=== PATIENT | female | born 1980 | race American Indian/Alaskan Native ===

== ENCOUNTER 2017-09-24 14:52 | Emergency (ER) | payer SELFPAY ==
[2017-09-24 15:28] LABS: Bilirubin,Urine NEG (Negative); Blood,Urine NEG (Negative); Color,Urine Yellow (Yellow); Nitrite,Urine NEG (Negative); Protein,Urine <15 mg/dL mg/dL (Negative); Urobilinogen,Urine < 2.0 mg/dL (<2.0)
[2017-09-24 16:35] LABS: Hematocrit 27.1 % (30.3-42.9); Hemoglobin 8.4 gm/dl (10.1-14.3); Mean Corpuscular HGB Conc 31 % (30-34); Mean Corpuscular Hemoglobin 20 pg (28-32); Mean Corpuscular Volume 64 fl (79-97); Red Blood Count 4.26 M/mm3 (3.65-5.03)
[2017-09-24 16:36] LABS: Basophils # (Auto) 0.1 K/mm3 (0.0-0.1); Basophils % (Auto) 2.1 % (0.0-1.8); Eosinophils # (Auto) 0.1 K/mm3 (0.0-0.4); Eosinophils % (Auto) 2.3 % (0.0-4.3); Lymphocytes % (Auto) 46.4 % (13.4-35.0); Monocytes # (Auto) 0.4 K/mm3 (0.0-0.8); Monocytes % (Auto) 9.1 % (0.0-7.3); Platelet Count 223 K/mm3 (140-440); Red Cell Distribution Width 19.4 % (13.2-15.2)
[2017-09-24 16:56] LABS: Alanine Aminotransferase 10 units/L (7-56); BUN/Creatinine Ratio 23; Blood Urea Nitrogen 14 mg/dL (7-17); Calcium 8.3 mg/dL (8.4-10.2); Hemolysis Index 11
--- NOTE | 2017-09-25 00:11 | Emergency Department Report ---
ED Female HPI - General Chief complaint: Abdominal Pain Stated complaint: ABD.,BACK PAIN CRAMPING, BLEEDING Time Seen by Provider: 09/24/17 23:31 Source: patient Mode of arrival: Ambulatory Limitations: No Limitations - History of Present Illness Initial comments: This is a 37 y.o. female presents with left pelvic pain and bleeding for 1 week. LMP 09/11/2017. The bleeding is every other day and cramping is 10/10 on pain scale that is intermittent. Sometimes the bleeding is scant and at times there are large clots. She have a history of tubiligation and HTN. She is currently not taking propanolol. She doesn't have a history of irregular menses. Reports menses regular and last for 5 days. MD Complaint: vaginal bleeding, pelvic pain -: week(s) (1) Location: LLQ Radiation: non-radiating Severity: moderate Severity scale (0 -10): 7 Quality: cramping Consistency: intermittent Improves with: medication Worsens with: none Are you Now?: No Last Menstrual Period: 09/11/17 EDC: 06/18/18 Associated Symptoms: vaginal bleeding, abdominal pain. denies: vaginal discharge, nausea/vomiting, fever/chills, headaches, loss of appetite, dysuria, hematuria, rash, seizure, shortness of breath, syncope, weakness - Related Data Sexually active: Yes Previous Rx's Medication Instructions Recorded Last Taken Type amLODIPine [Norvasc] 2.5 mg PO DAILY 30 Days tab 06/21/13 Unknown Rx Ciprofloxacin HCl [Cipro] 500 mg PO Q12H #20 tab 03/02/14 Unknown Rx HYDROcodone/APAP 5-325 [[place] 1 each PO Q6HR PRN #12 tablet 03/02/14 Unknown Rx 5/325] Promethazine Dm [Phenergan DM 5 ml PO Q6H PRN #120 ml 03/02/14 Unknown Rx 6.25-15 mg/5 ml] Lisinopril/Hydrochlorothiazide 1 each PO QDAY #30 tablet 02/01/15 Unknown Rx [Zestoretic 20-12.5 mg] Butalb/Acetaminophen/Caffeine 1 each PO Q6H PRN #20 capsule 10/24/15 Unknown Rx [Fioricet 50-300-40 mg CAP] Propranolol [Inderal] 10 mg PO BID #60 tablet 10/24/15 Unknown Rx Sulfamethoxazole/Trimethoprim 1 each PO BID #14 tablet 11/04/15 Unknown Rx [Bactrim DS TAB] ALBUTEROL Inhaler [ProAir HFA 2 puff IH QID PRN #1 inhalation 07/07/16 Unknown Rx Inhaler] Azithromycin [Zithromax Z-THANH] 250 mg PO DAILY #6 tab 07/07/16 Unknown Rx guaiFENesin/CODEINE [Robitussin AC] 5 ml PO Q6H PRN #100 ml 07/07/16 Unknown Rx Ibuprofen 800 mg PO Q6H PRN #20 tablet 09/25/17 Unknown Rx medroxyPROGESTERone ACETATE 10 mg PO DAILY #10 tablet 09/25/17 Unknown Rx [Provera] Allergies Allergy/AdvReac Type Severity Reaction Status Date / Time cefazolin sodium [From [facility] [place]] Allergy Itching Verified 06/21/13 01:38 ED Review of Systems ROS: Stated complaint: ABD.,BACK PAIN CRAMPING, BLEEDING Other details as noted in HPI Constitutional: denies: chills, fever Respiratory: denies: cough, shortness of breath, wheezing Cardiovascular: denies: chest pain, palpitations Gastrointestinal: abdominal pain. denies: nausea, diarrhea Genitourinary: abnormal menses. denies: urgency, dysuria, discharge Neurological: denies: headache, weakness, paresthesias ED Past Medical Hx - Past Medical History Hx Hypertension: Yes (noncompliant with propranolol) Additional medical history: Vaginal delivery 2004,2002, 2000 and 1998 - Surgical History Additional Surgical History: Left hand and hip surgery,tubiligation - Social History Smoking Status: Current Some Day Smoker - Medications Home Medications: Home Medications Medication Instructions Recorded Confirmed Last Taken Type amLODIPine [Norvasc] 2.5 mg PO DAILY 30 Days tab 06/21/13 03/02/14 Unknown Rx Ciprofloxacin HCl [Cipro] 500 mg PO Q12H #20 tab 03/02/14 Unknown Rx HYDROcodone/APAP 5-325 [[place] 1 each PO Q6HR PRN #12 tablet 03/02/14 Unknown Rx 5/325] Promethazine Dm [Phenergan DM 5 ml PO Q6H PRN #120 ml 03/02/14 Unknown Rx 6.25-15 mg/5 ml] Lisinopril/Hydrochlorothiazide 1 each PO QDAY #30 tablet 02/01/15 Unknown Rx [Zestoretic 20-12.5 mg] Butalb/Acetaminophen/Caffeine 1 each PO Q6H PRN #20 capsule 10/24/15 Unknown Rx [Fioricet 50-300-40 mg CAP] Propranolol [Inderal] 10 mg PO BID #60 tablet 10/24/15 Unknown Rx Sulfamethoxazole/Trimethoprim 1 each PO BID #14 tablet 11/04/15 Unknown Rx [Bactrim DS TAB] ALBUTEROL Inhaler [ProAir HFA 2 puff IH QID PRN #1 inhalation 07/07/16 Unknown Rx Inhaler] Azithromycin [Zithromax Z-THANH] 250 mg PO DAILY #6 tab 07/07/16 Unknown Rx guaiFENesin/CODEINE [Robitussin AC] 5 ml PO Q6H PRN #100 ml 07/07/16 Unknown Rx Ibuprofen 800 mg PO Q6H PRN #20 tablet 09/25/17 Unknown Rx medroxyPROGESTERone ACETATE 10 mg PO DAILY #10 tablet 09/25/17 Unknown Rx [Provera] ED Physical Exam - General Limitations: No Limitations General appearance: alert, in no apparent distress - Respiratory Respiratory exam: Present: normal lung sounds bilaterally. Absent: respiratory distress - Cardiovascular Cardiovascular Exam: Present: regular rate, normal rhythm. Absent: systolic murmur, diastolic murmur, rubs, gallop - GI/Abdominal GI/Abdominal exam: Present: soft, tenderness (LLQ), normal bowel sounds. Absent : distended, guarding, rebound, rigid - Back Exam Back exam: Present: normal inspection - Neurological Exam Neurological exam: Present: alert, oriented X3 - Skin Skin exam: Present: warm, dry, intact, normal color. Absent: rash ED Course Vital Signs 09/24/17 14:59 Temperature 98.1 F Pulse Rate 70 Respiratory 16 Rate Blood Pressure 145/97 O2 Sat by Pulse 100 Oximetry ED Medical Decision Making - Lab Data Result diagrams: 09/24/17 16:16 09/24/17 16:16 - Radiology Data Radiology results: report reviewed IMPRESSION: Three discrete fibroids in the body of the uterus. Small functional cysts in both ovaries the larger in the left ovary measures 2.4 cm in diameter. No evidence of ovarian torsion. Small amount of free fluid in cul-de-sac. - Medical Decision Making This is a 37 y.o. female presents with vaginal bleeding and left abdominal pain for 1 week. LMP 09/11/2017. Patient was examined by me. Obtained CBC, CMP, & UA. WBC 4.3 all other labs WNL. Pelvis and transvaginal US obtained and three discrete fibroids in the body of the uterus. Small functional cysts in both ovaries the larger in the left ovary measures 2.4 cm in diameter. No evidence of ovarian torsion. Small amount of free fluid in cul-de-sac. Discussed results with patient. Discharged home in stable condition. Start provera 10 mg po daily for 10 days. Follow up with [facility] for management of metrorrhagia and fibroids. Critical care attestation.: If time is entered above; I have spent that time in minutes in the direct care of this critically ill patient, excluding procedure time. ED Disposition Clinical Impression: Abnormal uterine bleeding unrelated to menstrual cycle Fibroids Qualifiers: Uterine leiomyoma location: unspecified location Qualified Code(s): D25.9 - Leiomyoma of uterus, unspecified Ovarian cyst Qualifiers: Laterality: bilateral Qualified Code(s): N83.201 - Unspecified ovarian cyst, right side; N83.202 - Unspecified ovarian cyst, left side; N83.202 - Unspecified ovarian cyst, left side Disposition: - TO HOME OR SELFCARE Is pt being admited?: No Does the pt Need Aspirin: No Condition: Stable Instructions: Abdominal Pain (ED), Uterine Fibroids (ED) Additional Instructions: Take provera daily until bleeding stop. Follow up with [facility] for fibroids and ovarian cyst. Prescriptions: Ibuprofen 800 mg PO Q6H PRN #20 tablet PRN Reason: Pain medroxyPROGESTERone ACETATE [Provera] 10 mg PO DAILY #10 tablet Referrals: HUEY PHIPPS MD [Staff Physician] - 3-5 Days [facility] [Outside] - 3-5 Days [facility] [Outside] - 3-5 Days Time of Disposition: 04:16 Print Language: DUTCH
[2017-09-25 01:07] LABS: HCG Qualitative,Urine Negative (Negative)
[2017-09-25 01:08] LABS: Mucus,Urine FEW /HPF
--- NOTE | 2017-09-25 03:02 | Ultrasound Report ---
FINAL REPORT EXAM: US TRANSVAGINAL HISTORY: vaginal bleeding TECHNIQUE: Transvaginal imaging was obtained the pelvis along with Doppler interrogation of the adnexa. FINDINGS: The uterus is anteverted measuring 9.9 cm x 5 cm x 6.2 cm. There are 3 separate hypoechoic fibroids in the body of the uterus the largest measuring 2.6 cm x 2.5 cm x 2.4 cm anteriorly. The abdomen thickness is 15 millimeters. The endometrium is homogeneous. There trace free fluid in the pelvis. The right ovary measures 3.4 cm x 2 cm x 3.5 cm. Within the right ovary are benign-appearing follicles. The largest measures 1.5 cm in diameter. Blood flow is normal to the right ovary. The left ovary measures 4 cm x 3.2 cm by 3.6 cm. There are benign-appearing follicles in left ovary with a dominant cyst measuring 2.4 cm in diameter. Blood flow is normal to the left ovary. IMPRESSION: Three benign-appearing fibroids in the uterus the largest measuring up to 2.6 cm in diameter. Small functional cysts in both ovaries. No evidence of ovarian torsion. Small amount of free fluid in cul-de-sac.
--- NOTE | 2017-09-25 03:05 | Ultrasound Report ---
FINAL REPORT EXAM: US PELVIC COMPLETE HISTORY: . TECHNIQUE: Transabdominal imaging was obtained of the pelvis along with Doppler interrogation of the adnexa. FINDINGS: The uterus is anteverted measuring 9.9 cm x 5 cm x 6.2 cm. There are 3 discrete hypoechoic fibroids in the body of uterus, the largest anteriorly measuring 2.6 cm x 2.5 cm x 2.4 cm. The endometrium is 15 mm. There is trace free fluid the pelvis. The right ovary measures 3.4 cm x 2 cm x 3.5 cm. Within the right ovary are several benign follicles the largest measuring 1.5 cm in diameter. The blood flow is normal to the right ovary. The left lobe measures 4 cm x 3.2 cm x 3.6 cm. There are benign-appearing follicles left ovary with a dominant cyst measuring 2.4 cm in diameter. The blood flow is normal to left ovary. IMPRESSION: Three discrete fibroids in the body of the uterus. Small functional cysts in both ovaries the larger in the left ovary measures 2.4 cm in diameter. No evidence of ovarian torsion. Small amount of free fluid in cul-de-sac.
[2017-09-25 04:37] VITALS: BP 156/98
== END 2017-09-25 04:35 | disposition home or self-care (01) ==
LOC: ED 14:52
DX: N93.8 Other specified abnormal uterine and vaginal bleeding (principal); D25.9 Leiomyoma of uterus, unspecified; N83.202 Unspecified ovarian cyst, left side; N83.201 Unspecified ovarian cyst, right side; F17.200 Nicotine dependence, unspecified, uncomplicated; I10 Essential (primary) hypertension; Z98.51 Tubal ligation status; Z88.1 Allergy status to other antibiotic agents
CPT/HCPCS: 36415; 76830; 76856; 80053; 81001; 81025; 85025; 99284

== ENCOUNTER 2018-03-05 22:33 | Emergency (ER) | payer MEDICAID ==
[2018-03-06] MEDS ORDERED: MOTRIN ONE (00:06)
[2018-03-06 00:07] VITALS: BP 160/100
[2018-03-06] MEDS ORDERED: MOTRIN PO ONE (00:08)
[2018-03-06] MEDS ORDERED: AUGMENTIN 875 MG PO ONE (02:23)
[2018-03-06] MEDS ORDERED: ULTRAM PO ONE (02:23)
[2018-03-06] MEDS ORDERED: DECADRON IM ONE (02:23)
--- NOTE | 2018-03-06 02:30 | Emergency Department Report ---
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 Symptoms relieved by nothing tried symptoms exacerbated by swallowing MD complaint: sore throat, ear pain, other (sinus pressure ) Onset/Timin -: days(s) Location: R ear, L ear, throat, other (sinus ) Severity: moderate Severity scale (0 -10): 4 Quality: aching, sharp Consistency: constant Improves with: none Worsens with: swallowing, position Associated Symptoms: fever, pain with swallowing, sore throat, rhinorrhea - Related Data Previous Rx's Medication Instructions Recorded Last Taken Type amLODIPine [Norvasc] 2.5 mg PO DAILY 30 Days tab 06/21/13 Unknown Rx Ciprofloxacin HCl [Cipro] 500 mg PO Q12H #20 tab 03/02/14 Unknown Rx HYDROcodone/APAP 5-325 [[place] 1 each PO Q6HR PRN #12 tablet 03/02/14 Unknown Rx 5/325] Promethazine Dm [Phenergan DM 5 ml PO Q6H PRN #120 ml 03/02/14 Unknown Rx 6.25-15 mg/5 ml] Lisinopril/Hydrochlorothiazide 1 each PO QDAY #30 tablet 02/01/15 Unknown Rx [Zestoretic 20-12.5 mg] Butalb/Acetaminophen/Caffeine 1 each PO Q6H PRN #20 capsule 10/24/15 Unknown Rx [Fioricet 50-300-40 mg CAP] Propranolol [Inderal] 10 mg PO BID #60 tablet 10/24/15 Unknown Rx Sulfamethoxazole/Trimethoprim 1 each PO BID #14 tablet 11/04/15 Unknown Rx [Bactrim DS TAB] ALBUTEROL Inhaler [ProAir HFA 2 puff IH QID PRN #1 inhalation 07/07/16 Unknown Rx Inhaler] Azithromycin [Zithromax Z-THANH] 250 mg PO DAILY #6 tab 07/07/16 Unknown Rx guaiFENesin/CODEINE [Robitussin AC] 5 ml PO Q6H PRN #100 ml 07/07/16 Unknown Rx Ibuprofen 800 mg PO Q6H PRN #20 tablet 09/25/17 Unknown Rx medroxyPROGESTERone ACETATE 10 mg PO DAILY #10 tablet 09/25/17 Unknown Rx [Provera] Amoxicillin/Potassium Clav 1 each PO BID #20 tablet 03/06/18 Unknown Rx [Augmentin 875-125 Tablet] Benzocaine/Menth/Cetylpyrd 8 each MM Q2H PRN #3 packet 03/06/18 Unknown Rx [Cepacol X Strength] Ibuprofen [Motrin 800 MG tab] 800 mg PO Q8HR PRN #30 tablet 03/06/18 Unknown Rx diphenhydrAMINE [Benadryl CAP] 25 mg PO Q8HR PRN #21 capsule 03/06/18 Unknown Rx Allergies Allergy/AdvReac Type Severity Reaction Status Date / Time cefazolin sodium [From [facility]] Allergy Itching Verified 06/21/13 01:38 ED Dental HPI - General Chief complaint: Sore Throat Stated complaint: FEVER , CHILLS Time Seen by Provider: 03/06/18 02:17 Source: patient Mode of arrival: Ambulatory Limitations: No Limitations - Related Data Previous Rx's Medication Instructions Recorded Last Taken Type amLODIPine [Norvasc] 2.5 mg PO DAILY 30 Days tab 06/21/13 Unknown Rx Ciprofloxacin HCl [Cipro] 500 mg PO Q12H #20 tab 03/02/14 Unknown Rx HYDROcodone/APAP 5-325 [[place] 1 each PO Q6HR PRN #12 tablet 03/02/14 Unknown Rx 5/325] Promethazine Dm [Phenergan DM 5 ml PO Q6H PRN #120 ml 03/02/14 Unknown Rx 6.25-15 mg/5 ml] Lisinopril/Hydrochlorothiazide 1 each PO QDAY #30 tablet 02/01/15 Unknown Rx [Zestoretic 20-12.5 mg] Butalb/Acetaminophen/Caffeine 1 each PO Q6H PRN #20 capsule 10/24/15 Unknown Rx [Fioricet 50-300-40 mg CAP] Propranolol [Inderal] 10 mg PO BID #60 tablet 10/24/15 Unknown Rx Sulfamethoxazole/Trimethoprim 1 each PO BID #14 tablet 11/04/15 Unknown Rx [Bactrim DS TAB] ALBUTEROL Inhaler [ProAir HFA 2 puff IH QID PRN #1 inhalation 07/07/16 Unknown Rx Inhaler] Azithromycin [Zithromax Z-THANH] 250 mg PO DAILY #6 tab 07/07/16 Unknown Rx guaiFENesin/CODEINE [Robitussin AC] 5 ml PO Q6H PRN #100 ml 07/07/16 Unknown Rx Ibuprofen 800 mg PO Q6H PRN #20 tablet 09/25/17 Unknown Rx medroxyPROGESTERone ACETATE 10 mg PO DAILY #10 tablet 09/25/17 Unknown Rx [Provera] Amoxicillin/Potassium Clav 1 each PO BID #20 tablet 03/06/18 Unknown Rx [Augmentin 875-125 Tablet] Benzocaine/Menth/Cetylpyrd 8 each MM Q2H PRN #3 packet 03/06/18 Unknown Rx [Cepacol X Strength] Ibuprofen [Motrin 800 MG tab] 800 mg PO Q8HR PRN #30 tablet 03/06/18 Unknown Rx diphenhydrAMINE [Benadryl CAP] 25 mg PO Q8HR PRN #21 capsule 03/06/18 Unknown Rx Allergies Allergy/AdvReac Type Severity Reaction Status Date / Time cefazolin sodium [From [facility]] Allergy Itching Verified 06/21/13 01:38 ED Review of Systems ROS: Stated complaint: FEVER , CHILLS Other details as noted in HPI Constitutional: denies: chills, fever Eyes: denies: eye pain, eye discharge, vision change ENT: ear pain, throat pain, congestion Respiratory: denies: cough, shortness of breath, wheezing Cardiovascular: denies: chest pain, palpitations Endocrine: no symptoms reported Gastrointestinal: denies: abdominal pain, nausea, diarrhea Genitourinary: denies: urgency, dysuria, discharge Musculoskeletal: denies: back pain, joint swelling, arthralgia Skin: denies: rash, lesions Neurological: denies: headache, weakness, paresthesias Psychiatric: denies: anxiety, depression Hematological/Lymphatic: denies: easy bleeding, easy bruising ED Past Medical Hx - Past Medical History Hx Hypertension: Yes (noncompliant with propranolol) Additional medical history: Vaginal delivery 2004,2002, 2000 and 1998 - Surgical History Additional Surgical History: Left hand and hip surgery,tubiligation - Social History Smoking Status: Never Smoker Substance Use Type: None - Medications Home Medications: Home Medications Medication Instructions Recorded Confirmed Last Taken Type amLODIPine [Norvasc] 2.5 mg PO DAILY 30 Days tab 06/21/13 03/02/14 Unknown Rx Ciprofloxacin HCl [Cipro] 500 mg PO Q12H #20 tab 03/02/14 Unknown Rx HYDROcodone/APAP 5-325 [[place] 1 each PO Q6HR PRN #12 tablet 03/02/14 Unknown Rx 5/325] Promethazine Dm [Phenergan DM 5 ml PO Q6H PRN #120 ml 03/02/14 Unknown Rx 6.25-15 mg/5 ml] Lisinopril/Hydrochlorothiazide 1 each PO QDAY #30 tablet 02/01/15 Unknown Rx [Zestoretic 20-12.5 mg] Butalb/Acetaminophen/Caffeine 1 each PO Q6H PRN #20 capsule 10/24/15 Unknown Rx [Fioricet 50-300-40 mg CAP] Propranolol [Inderal] 10 mg PO BID #60 tablet 10/24/15 Unknown Rx Sulfamethoxazole/Trimethoprim 1 each PO BID #14 tablet 11/04/15 Unknown Rx [Bactrim DS TAB] ALBUTEROL Inhaler [ProAir HFA 2 puff IH QID PRN #1 inhalation 07/07/16 Unknown Rx Inhaler] Azithromycin [Zithromax Z-THANH] 250 mg PO DAILY #6 tab 07/07/16 Unknown Rx guaiFENesin/CODEINE [Robitussin AC] 5 ml PO Q6H PRN #100 ml 07/07/16 Unknown Rx Ibuprofen 800 mg PO Q6H PRN #20 tablet 09/25/17 Unknown Rx medroxyPROGESTERone ACETATE 10 mg PO DAILY #10 tablet 09/25/17 Unknown Rx [Provera] Amoxicillin/Potassium Clav 1 each PO BID #20 tablet 03/06/18 Unknown Rx [Augmentin 875-125 Tablet] Benzocaine/Menth/Cetylpyrd 8 each MM Q2H PRN #3 packet 03/06/18 Unknown Rx [Cepacol X Strength] Ibuprofen [Motrin 800 MG tab] 800 mg PO Q8HR PRN #30 tablet 03/06/18 Unknown Rx diphenhydrAMINE [Benadryl CAP] 25 mg PO Q8HR PRN #21 capsule 03/06/18 Unknown Rx ED Physical Exam - General Limitations: No Limitations General appearance: alert, in no apparent distress - Head Head exam: Present: atraumatic, normocephalic - Eye Eye exam: Present: normal appearance, PERRL Pupils: Present: normal accommodation - ENT ENT exam: Present: mucous membranes moist - Expanded ENT Exam Expanded TM/Canal exam: Erythema: Right TM, Left TM, Loss of Landmarks: Right TM, Left TM Mouth exam: Present: tongue normal. Absent: trismus, muffled voice Throat exam: Positive: tonsillar erythema, tonsillomegaly, tonsillar exudate. Negative: R peritonsillar mass, L peritonsillar mass - Neck Neck exam: Present: full ROM, lymphadenopathy. Absent: tenderness, meningismus , thyromegaly - Respiratory Respiratory exam: Present: normal lung sounds bilaterally. Absent: respiratory distress, wheezes, stridor, chest wall tenderness - Cardiovascular Cardiovascular Exam: Present: regular rate, normal rhythm, normal heart sounds. Absent: systolic murmur, diastolic murmur, rubs, gallop - GI/Abdominal GI/Abdominal exam: Present: soft, normal bowel sounds. Absent: distended, guarding, rigid, organomegaly, mass, bruit, pulsatile mass, hernia - Rectal Rectal exam: Present: deferred - Extremities Exam Extremities exam: Present: normal inspection - Back Exam Back exam: Present: normal inspection - Neurological Exam Neurological exam: Present: alert, oriented X3, CN II-XII intact, normal gait, reflexes normal - Psychiatric Psychiatric exam: Present: normal affect, normal mood - Skin Skin exam: Present: warm, dry, intact, normal color. Absent: rash ED Course Vital Signs 03/05/18 03/06/18 23:57 00:14 Temperature 99.7 F H Pulse Rate 105 H 105 H Respiratory 16 Rate Blood Pressure 160/100 Blood Pressure 160/100 [Left] O2 Sat by Pulse 97 97 Oximetry ED Medical Decision Making - Medical Decision Making this is sinusitis ,fever is improved, there is no stridor no wheezing , airway is patent no tonsilar abscess will tx for same with augmentin as pt tolerates pcn, likchase no true cephasporin allergy ,will follow up with [facility] pt verbalized agreement and understanding of same. Critical care attestation.: If time is entered above; I have spent that time in minutes in the direct care of this critically ill patient, excluding procedure time. ED Disposition Clinical Impression: Sinusitis Qualifiers: Sinusitis location: maxillary Chronicity: acute Recurrence: not specified as recurrent Qualified Code(s): J01.00 - Acute maxillary sinusitis, unspecified Disposition: TO HOME OR SELFCARE Is pt being admited?: No Does the pt Need Aspirin: No Condition: Good Instructions: Sinusitis (ED) Prescriptions: Amoxicillin/Potassium Clav [Augmentin 875-125 Tablet] 1 each PO BID #20 tablet Benzocaine/Menth/Cetylpyrd [Cepacol X Strength] 8 each MM Q2H PRN #3 packet PRN Reason: throat pain diphenhydrAMINE [Benadryl CAP] 25 mg PO Q8HR PRN #21 capsule PRN Reason: congestion Ibuprofen [Motrin 800 MG tab] 800 mg PO Q8HR PRN #30 tablet PRN Reason: pain Referrals: [facility] [Outside] - 3-5 Days Forms: Work/School Release Form(ED) Time of Disposition: 02:36
== END 2018-03-06 03:00 | disposition home or self-care (01) ==
LOC: ED 22:33
DX: J01.00 Acute maxillary sinusitis, unspecified (principal)
CPT/HCPCS: 87116; 87430; 96372; 99283; J1100

== ENCOUNTER 2018-03-07 02:22 | Emergency (ER) | payer MEDICAID ==
[2018-03-07] MEDS ORDERED: ZOFRAN IV ONE ×2 (02:40→06:54)
[2018-03-07] MEDS ORDERED: NACL 0.9% 1000 ML 1,000 ML IV ONE ×2 (02:40→06:55)
[2018-03-07 03:17] LABS: Basophils # (Auto) 0.1 K/mm3 (0.0-0.1); Basophils % (Auto) 0.5 % (0.0-1.8); Eosinophils % (Auto) 0.2 % (0.0-4.3); Hematocrit 30.2 % (30.3-42.9); Hemoglobin 9.2 gm/dl (10.1-14.3); Lymphocytes % (Auto) 16.8 % (13.4-35.0); Mean Corpuscular HGB Conc 30 % (30-34); Mean Corpuscular Hemoglobin 20 pg (28-32); Mean Corpuscular Volume 66 fl (79-97); Monocytes # (Auto) 1.1 K/mm3 (0.0-0.8); Monocytes % (Auto) 9.2 % (0.0-7.3); Platelet Count 449 K/mm3 (140-440); Red Blood Count 4.56 M/mm3 (3.65-5.03)
[2018-03-07 03:36] LABS: Alanine Aminotransferase 5 units/L (7-56); Albumin 3.9 g/dL (3.9-5); BUN/Creatinine Ratio 24; Blood Urea Nitrogen 12 mg/dL (7-17); Calcium 8.7 mg/dL (8.4-10.2); Hemolysis Index 3; Lipase 15 units/L (13-60)
[2018-03-07 05:03] LABS: Bilirubin,Urine NEG (Negative); Blood,Urine LG (Negative); Color,Urine Yellow (Yellow); Hyaline Casts,Urine 1 /LPF; Mucus,Urine FEW /HPF
[2018-03-07] MEDS ORDERED: PROTONIX IV ONE (06:54)
[2018-03-07] MEDS ORDERED: DILAUDID IV ONE ×2 (06:54→09:17)
--- NOTE | 2018-03-07 08:03 | Cat Scan Report ---
CT ABDOMEN PELVIS WITH CONTRAST: HISTORY: Epigastric pain, nausea and vomiting. COMPARISON: 01/05/[address] abdomen and pelvis without contrast. TECHNIQUE: Helical CT in 1.25mm intervals following IV contrast. Sagittal and coronal reconstructions. FINDINGS: Lung bases: Normal. Liver: Normal. Biliary system: Normal. Pancreas: Normal. Spleen: Normal. Kidneys/ureters/bladder: Normal. Adrenal glands: Normal. Aorta: Normal. Intestines: No oral contrast was administered which limits evaluation of the GI tract. However, there is marked thickening of the gastric antrum wall measuring up to 1.1 cm. There is no obvious large ulceration, surrounding fluid or mass. This has the appearance of a relatively severe gastritis. The small bowel loops and colon are grossly normal. Mild fecal retention is noted. Appendix: Normal. Pelvic viscera: Approximately 4 or 5 uterine fibroids are identified with the largest measuring 2.5 cm in the posterior fundus. The ovaries are unremarkable. Ascites: Trace free pelvic fluid is noted. Adenopathy: None. Musculoskeletal: Normal. IMPRESSION: Moderate to severe thickening of the gastric antrum suggesting gastritis. Uterine fibroid disease. Trace pelvic ascites.
[2018-03-07] MEDS ORDERED: LIDOCAINE VISCOUS 2% PO ONE (08:26)
[2018-03-07] MEDS ORDERED: ALUM-MAG HYDROX-SIMETH 200-200-20MG/5ML PO ONE (08:26)
--- NOTE | 2018-03-07 08:26 | Emergency Department Report ---
ED Abdominal Pain HPI - General Chief Complaint: Abdominal Pain Stated Complaint: ABD PAIN/CHEST PAIN Time Seen by Provider: 03/07/18 06:50 Source: patient Mode of arrival: Ambulatory Limitations: No Limitations - History of Present Illness Initial Comments: 38-year-old female with a past medical history hypertension noncompliant with medications for greater than 6 months and a history of GERD presents to the Hospital complaining of severe epigastric pain radiating to her chest with nausea and vomiting. Pain is constant, worse with palpation, no alleviating factors reported. Patient was in the ED yesterday and diagnosed with sinusitis. After her first dose of Augmentin and ibuprofen symptoms began. Although patient has a history of GERD she has never experienced such severe symptoms in the past. She has not tried taking any medications or GERD. She denies melena, hematochezia, hematemesis, diarrhea, dysuria, or fever. Abdominal surgical history of tubal ligation. Severity scale (0 -10): 8 - Related Data Previous Rx's Medication Instructions Recorded Last Taken Type amLODIPine [Norvasc] 2.5 mg PO DAILY 30 Days tab 06/21/13 Unknown Rx Ciprofloxacin HCl [Cipro] 500 mg PO Q12H #20 tab 03/02/14 Unknown Rx HYDROcodone/APAP 5-325 [[place] 1 each PO Q6HR PRN #12 tablet 03/02/14 Unknown Rx 5/325] Promethazine Dm [Phenergan DM 5 ml PO Q6H PRN #120 ml 03/02/14 Unknown Rx 6.25-15 mg/5 ml] Lisinopril/Hydrochlorothiazide 1 each PO QDAY #30 tablet 02/01/15 Unknown Rx [Zestoretic 20-12.5 mg] Butalb/Acetaminophen/Caffeine 1 each PO Q6H PRN #20 capsule 10/24/15 Unknown Rx [Fioricet 50-300-40 mg CAP] Propranolol [Inderal] 10 mg PO BID #60 tablet 10/24/15 Unknown Rx Sulfamethoxazole/Trimethoprim 1 each PO BID #14 tablet 11/04/15 Unknown Rx [Bactrim DS TAB] ALBUTEROL Inhaler [ProAir HFA 2 puff IH QID PRN #1 inhalation 07/07/16 Unknown Rx Inhaler] Azithromycin [Zithromax Z-THANH] 250 mg PO DAILY #6 tab 07/07/16 Unknown Rx guaiFENesin/CODEINE [Robitussin AC] 5 ml PO Q6H PRN #100 ml 07/07/16 Unknown Rx Ibuprofen 800 mg PO Q6H PRN #20 tablet 09/25/17 Unknown Rx medroxyPROGESTERone ACETATE 10 mg PO DAILY #10 tablet 09/25/17 Unknown Rx [Provera] Amoxicillin/Potassium Clav 1 each PO BID #20 tablet 03/06/18 Unknown Rx [Augmentin 875-125 Tablet] Benzocaine/Menth/Cetylpyrd 8 each MM Q2H PRN #3 packet 03/06/18 Unknown Rx [Cepacol X Strength] Ibuprofen [Motrin 800 MG tab] 800 mg PO Q8HR PRN #30 tablet 03/06/18 Unknown Rx diphenhydrAMINE [Benadryl CAP] 25 mg PO Q8HR PRN #21 capsule 03/06/18 Unknown Rx Ferrous Sulfate [Iron] 325 mg PO DAILY #30 tablet 03/07/18 Unknown Rx HYDROcodone/APAP 5-325 [[place] 1 each PO Q6HR PRN #20 tablet 03/07/18 Unknown Rx 5/325] Mag Hydrox/Aluminum Hyd/Simeth 20 ml PO QID PRN #1 bottle 03/07/18 Unknown Rx [Maalox Advanced Suspension] Ondansetron [Zofran Odt] 4 mg PO Q8HR PRN #20 tab.rapdis 03/07/18 Unknown Rx Pantoprazole [Protonix] 40 mg PO QDAY #30 tablet 03/07/18 Unknown Rx Allergies Allergy/AdvReac Type Severity Reaction Status Date / Time cefazolin sodium [From Anc] Allergy Itching Verified 06/21/13 01:38 ED Review of Systems ROS: Stated complaint: ABD PAIN/CHEST PAIN Other details as noted in HPI Comment: All other systems reviewed and negative ED Past Medical Hx - Past Medical History Hx Hypertension: Yes (noncompliant with propranolol) Additional medical history: Vaginal delivery 2004,2002, 2000 and 1998 - Surgical History Additional Surgical History: Left hand and hip surgery,tubal ligation - Social History Smoking Status: Never Smoker Substance Use Type: None - Medications Home Medications: Home Medications Medication Instructions Recorded Confirmed Last Taken Type amLODIPine [Norvasc] 2.5 mg PO DAILY 30 Days tab 06/21/13 03/02/14 Unknown Rx Ciprofloxacin HCl [Cipro] 500 mg PO Q12H #20 tab 03/02/14 Unknown Rx HYDROcodone/APAP 5-325 [[place] 1 each PO Q6HR PRN #12 tablet 03/02/14 Unknown Rx 5/325] Promethazine Dm [Phenergan DM 5 ml PO Q6H PRN #120 ml 03/02/14 Unknown Rx 6.25-15 mg/5 ml] Lisinopril/Hydrochlorothiazide 1 each PO QDAY #30 tablet 02/01/15 Unknown Rx [Zestoretic 20-12.5 mg] Butalb/Acetaminophen/Caffeine 1 each PO Q6H PRN #20 capsule 10/24/15 Unknown Rx [Fioricet 50-300-40 mg CAP] Propranolol [Inderal] 10 mg PO BID #60 tablet 10/24/15 Unknown Rx Sulfamethoxazole/Trimethoprim 1 each PO BID #14 tablet 11/04/15 Unknown Rx [Bactrim DS TAB] ALBUTEROL Inhaler [ProAir HFA 2 puff IH QID PRN #1 inhalation 07/07/16 Unknown Rx Inhaler] Azithromycin [Zithromax Z-THANH] 250 mg PO DAILY #6 tab 07/07/16 Unknown Rx guaiFENesin/CODEINE [Robitussin AC] 5 ml PO Q6H PRN #100 ml 07/07/16 Unknown Rx Ibuprofen 800 mg PO Q6H PRN #20 tablet 09/25/17 Unknown Rx medroxyPROGESTERone ACETATE 10 mg PO DAILY #10 tablet 09/25/17 Unknown Rx [Provera] Amoxicillin/Potassium Clav 1 each PO BID #20 tablet 03/06/18 Unknown Rx [Augmentin 875-125 Tablet] Benzocaine/Menth/Cetylpyrd 8 each MM Q2H PRN #3 packet 03/06/18 Unknown Rx [Cepacol X Strength] Ibuprofen [Motrin 800 MG tab] 800 mg PO Q8HR PRN #30 tablet 03/06/18 Unknown Rx diphenhydrAMINE [Benadryl CAP] 25 mg PO Q8HR PRN #21 capsule 03/06/18 Unknown Rx Ferrous Sulfate [Iron] 325 mg PO DAILY #30 tablet 03/07/18 Unknown Rx HYDROcodone/APAP 5-325 [[place] 1 each PO Q6HR PRN #20 tablet 03/07/18 Unknown Rx 5/325] Mag Hydrox/Aluminum Hyd/Simeth 20 ml PO QID PRN #1 bottle 03/07/18 Unknown Rx [Maalox Advanced Suspension] Ondansetron [Zofran Odt] 4 mg PO Q8HR PRN #20 tab.rapdis 03/07/18 Unknown Rx Pantoprazole [Protonix] 40 mg PO QDAY #30 tablet 03/07/18 Unknown Rx ED Physical Exam - General Limitations: No Limitations - Other Other exam information: General: No limitations, moderate distress secondary to pain Head exam: Atraumatic, normocephalic Eyes exam: Nonicteric sclerae ENT: Moist mucous membrane, normal oropharynx Neck exam: Normal inspection, full range of motion, no meningismus nontender Respiratory exam: Clear to auscultation bilateral, no wheezes, rales, crackles Cardiovascular: Normal rate and rhythm, normal heart sounds Abdomen: Soft, nondistended, epigastric tenderness, with normal bowel sounds, no rebound, or guarding Extremity: Full range of motion normal inspection no deformity Back: Normal Inspection, full range of motion, no tenderness Neurologic: Alert, oriented x3, cranial nerves intact, no motor or sensory deficit Psychiatric: normal affect, normal mood Skin: Warm, dry, intact ED Course Vital Signs 03/07/18 03/07/18 03/07/18 02:29 04:55 05:00 Temperature 98.6 F 98 F Pulse Rate 96 H 81 Respiratory 18 18 Rate Blood Pressure 180/90 163/108 Blood Pressure 157/111 [Left] O2 Sat by Pulse 100 100 99 Oximetry 03/07/18 03/07/18 03/07/18 06:00 07:00 08:00 Temperature 98.0 F Pulse Rate 84 Respiratory 15 Rate Blood Pressure 155/114 155/114 134/90 Blood Pressure 134/90 [Left] O2 Sat by Pulse 99 99 100 Oximetry 03/07/18 09:00 Temperature Pulse Rate 89 Respiratory 13 Rate Blood Pressure 131/88 Blood Pressure [Left] O2 Sat by Pulse 100 Oximetry ED Medical Decision Making - Lab Data Result diagrams: 03/07/18 02:56 03/07/18 02:56 Lab Results 03/07/18 03/07/18 03/07/18 Range/Units 02:56 02:56 02:56 WBC 12.0 H (4.5-11.0) K/mm3 RBC 4.56 (3.65-5.03) M/mm3 Hgb 9.2 L (10.1-14.3) gm/dl Hct 30.2 L (30.3-42.9) % MCV 66 L (79-97) fl MCH 20 L (28-32) pg MCHC 30 (30-34) % RDW 19.0 H (13.2-15.2) % Plt Count 449 H (140-440) K/mm3 Lymph % (Auto) 16.8 (13.4-35.0) % [place] % (Auto) 9.2 H (0.0-7.3) % Eos % (Auto) 0.2 (0.0-4.3) % Baso % (Auto) 0.5 (0.0-1.8) % Lymph # 2.0 (1.2-5.4) K/mm3 [place] # 1.1 H (0.0-0.8) K/mm3 Eos # 0.0 (0.0-0.4) K/mm3 Baso # 0.1 (0.0-0.1) K/mm3 Seg Neutrophils % 73.3 H (40.0-70.0) % Seg Neutrophils # 8.8 H (1.8-7.7) K/mm3 Sodium 136 L (137-145) mmol/L Potassium 3.7 (3.6-5.0) mmol/L Chloride 98.0 (98-107) mmol/L Carbon Dioxide 25 (22-30) mmol/L Anion Gap 17 mmol/L BUN 12 (7-17) mg/dL Creatinine 0.5 L (0.7-1.2) mg/dL Estimated GFR > 60 ml/min BUN/Creatinine Ratio 24 % Glucose 115 H (65-100) mg/dL Calcium 8.7 (8.4-10.2) mg/dL Total Bilirubin 0.40 (0.1-1.2) mg/dL AST 23 (5-40) units/L ALT 5 L (7-56) units/L Alkaline Phosphatase 66 (35-129) units/L Total Protein 7.9 (6.3-8.2) g/dL Albumin 3.9 (3.9-5) g/dL Albumin/Globulin Ratio 1.0 % Lipase 15 (13-60) units/L HCG, Qual Negative (Negative) Urine Color (Yellow) Urine Turbidity (Clear) Urine pH (5.0-7.0) Ur Specific [employer] (1.003-1.030) Urine Protein (Negative) mg/dL Urine Glucose (UA) (Negative) mg/dL Urine Ketones (Negative) mg/dL Urine Blood (Negative) Urine Nitrite (Negative) Urine Bilirubin (Negative) Urine Urobilinogen (<2.0) mg/dL Ur Leukocyte Esterase (Negative) Urine WBC (Auto) (0.0-6.0) /HPF Urine RBC (Auto) (0.0-6.0) /HPF U Epithel Cells (Auto) (0-13.0) /HPF Hyaline Casts /LPF Urine Mucus /HPF 03/07/18 Range/Units 04:48 WBC (4.5-11.0) K/mm3 RBC (3.65-5.03) M/mm3 Hgb (10.1-14.3) gm/dl Hct (30.3-42.9) % MCV (79-97) fl MCH (28-32) pg MCHC (30-34) % RDW (13.2-15.2) % Plt Count (140-440) K/mm3 Lymph % (Auto) (13.4-35.0) % [place] % (Auto) (0.0-7.3) % Eos % (Auto) (0.0-4.3) % Baso % (Auto) (0.0-1.8) % Lymph # (1.2-5.4) K/mm3 [place] # (0.0-0.8) K/mm3 Eos # (0.0-0.4) K/mm3 Baso # (0.0-0.1) K/mm3 Seg Neutrophils % (40.0-70.0) % Seg Neutrophils # (1.8-7.7) K/mm3 Sodium (137-145) mmol/L Potassium (3.6-5.0) mmol/L Chloride (98-107) mmol/L Carbon Dioxide (22-30) mmol/L Anion Gap mmol/L BUN (7-17) mg/dL Creatinine (0.7-1.2) mg/dL Estimated GFR ml/min BUN/Creatinine Ratio % Glucose (65-100) mg/dL Calcium (8.4-10.2) mg/dL Total Bilirubin (0.1-1.2) mg/dL AST (5-40) units/L ALT (7-56) units/L Alkaline Phosphatase (35-129) units/L Total Protein (6.3-8.2) g/dL Albumin (3.9-5) g/dL Albumin/Globulin Ratio % Lipase (13-60) units/L HCG, Qual (Negative) Urine Color Yellow (Yellow) Urine Turbidity Clear (Clear) Urine pH 5.0 (5.0-7.0) Ur Specific [employer] 1.028 (1.003-1.030) Urine Protein 30 mg/dl (Negative) mg/dL Urine Glucose (UA) Neg (Negative) mg/dL Urine Ketones Neg (Negative) mg/dL Urine Blood Lg (Negative) Urine Nitrite Neg (Negative) Urine Bilirubin Neg (Negative) Urine Urobilinogen 2.0 (<2.0) mg/dL Ur Leukocyte Esterase Tr (Negative) Urine WBC (Auto) 3.0 (0.0-6.0) /HPF Urine RBC (Auto) 7.0 (0.0-6.0) /HPF U Epithel Cells (Auto) 5.0 (0-13.0) /HPF Hyaline Casts 1 /LPF Urine Mucus Few /HPF - Radiology Data Radiology results: report reviewed CT ABDOMEN PELVIS WITH CONTRAST: HISTORY: Epigastric pain, nausea and vomiting. COMPARISON: 01/05/[address] abdomen and pelvis without contrast. TECHNIQUE: Helical CT in 1.25mm intervals following IV contrast. Sagittal and coronal reconstructions. FINDINGS: Lung bases: Normal. Liver: Normal. Biliary system: Normal. Pancreas: Normal. Spleen: Normal. Kidneys/ureters/bladder: Normal. Adrenal glands: Normal. Aorta: Normal. Intestines: No oral contrast was administered which limits evaluation of the GI tract. However, there is marked thickening of the gastric antrum wall measuring up to 1.1 cm. There is no obvious large ulceration, surrounding fluid or mass. This has the appearance of a relatively severe gastritis. The small bowel loops and colon are grossly normal. Mild fecal retention is noted. Appendix: Normal. Pelvic viscera: Approximately 4 or 5 uterine fibroids are identified with the largest measuring 2.5 cm in the posterior fundus. The ovaries are unremarkable. Ascites: Trace free pelvic fluid is noted. Adenopathy: None. Musculoskeletal: Normal. IMPRESSION: Moderate to severe thickening of the gastric antrum suggesting gastritis. Uterine fibroid disease. Trace pelvic ascites. - Medical Decision Making Patient's symptoms a CT suggestive of gastritis likely triggered by ibuprofen Positive improvement after Dilaudid, Zofran, Protonix, Maalox, and viscous lidocaine Patient will be treated symptomatically with PPI, nausea medication, and pain medication recommended to avoid NSAIDs Hypertension improved with pain reduction. Patient knows that she has a history of uterine fibroids - Differential Diagnosis gastritis, PUD, esophagitis, pancreatitis, GERD Critical Care Time: No Critical care attestation.: If time is entered above; I have spent that time in minutes in the direct care of this critically ill patient, excluding procedure time. ED Disposition Clinical Impression: Gastritis, Uterine fibroid, Microcytic anemia Disposition: TO HOME OR SELFCARE Is pt being admited?: No Does the pt Need Aspirin: No Condition: Stable Instructions: Gastritis (ED), Iron Deficiency Anemia (ED), Uterine Fibroids (ED ) Additional Instructions: Stop the ibuprofen and do not take an Aleve, Naprosyn, aspirin, or Motrin because these medications may worsen your stomach pain. It is very important that you follow up with her primary care doctor and a shallot cleaner for further testing including H pylori bacteria testing and to determine if you need an endoscopy (as discussed in the ER). Take the medication as prescribed. Return is symptoms worsen as indicated by her discharge instructions. Prescriptions: Ferrous Sulfate [Iron] 325 mg PO DAILY #30 tablet HYDROcodone/APAP 5-325 [[place] 5/325] 1 each PO Q6HR PRN #20 tablet PRN Reason: Pain Mag Hydrox/Aluminum Hyd/Simeth [Maalox Advanced Suspension] 20 ml PO QID PRN #1 bottle PRN Reason: Indigestion Ondansetron [Zofran Odt] 4 mg PO Q8HR PRN #20 tab.rapdis PRN Reason: Nausea And Vomiting Pantoprazole [Protonix] 40 mg PO QDAY #30 tablet Referrals: CHERYL KENT MD [Primary Care Provider] - 3-5 Days (Primary care) AYDE HANDY MD [Staff Physician] - 3-5 Days (GI specialist) Forms: Work/School Release Form(ED) Time of Disposition: :53
[2018-03-07 10:40] VITALS: BP 123/84
== END 2018-03-07 10:40 | disposition home or self-care (01) ==
LOC: ED 02:22
DX: K29.70 Gastritis, unspecified, without bleeding (principal); D25.9 Leiomyoma of uterus, unspecified; D50.9 Iron deficiency anemia, unspecified; I10 Essential (primary) hypertension; K21.9 Gastro-esophageal reflux disease without esophagitis; Z88.1 Allergy status to other antibiotic agents
CPT/HCPCS: 36415; 74177; 80053; 81001; 83690; 84703; 85025; 96361; 96374; 96375; 96376; 99284; C9113; J1170; J2405; J7030; Q9967

== ENCOUNTER 2018-10-18 15:16 | Emergency (ER) | payer OTHER ==
[2018-10-18 17:49] VITALS: BP 161/105
--- NOTE | 2018-10-18 17:49 | Emergency Department Report ---
Chief Complaint: Dizziness Stated Complaint: HEADACHE/DIZZY Time Seen by Provider: 10/18/18 17:46 - HPI History of Present Illness: pt states she feels light-headed and dizziness for the past couple of days worse when she goes from sitting to standing having headaches, NO CARTY currently is supposed to be on medication for HTN, she states it is propranolol, has not taken it in 3 months due to lack of insurance MSE screening note: Focused history and physical exam performed. ED Disposition for MSE Condition: Stable
[2018-10-18 19:26] LABS: Basophils # (Auto) 0.1 K/mm3 (0.0-0.1); Basophils % (Auto) 2.7 % (0.0-1.8); Eosinophils # (Auto) 0.1 K/mm3 (0.0-0.4); Eosinophils % (Auto) 1.6 % (0.0-4.3); Lymphocytes # (Auto) 1.4 K/mm3 (1.2-5.4); Lymphocytes % (Auto) 42.5 % (13.4-35.0); Mean Corpuscular HGB Conc 29 % (30-34); Monocytes # (Auto) 0.3 K/mm3 (0.0-0.8); Platelet Count 561 K/mm3 (140-440); Red Blood Count 4.06 M/mm3 (3.65-5.03)
[2018-10-18] MEDS ORDERED: BENADRYL PO ONE (19:31)
[2018-10-18] MEDS ORDERED: AUGMENTIN 875 MG PO ONE (19:31)
[2018-10-18] MEDS ORDERED: IBUPROFEN PO ONE (19:31)
[2018-10-18] MEDS ORDERED: DECADRON IM ONE (19:32)
[2018-10-18 19:36] LABS: Hematocrit 24.4 % (30.3-42.9); Mean Corpuscular Volume 60 fl (79-97)
--- NOTE | 2018-10-18 19:48 | Emergency Department Report ---
ED Dizziness HPI - General Chief Complaint: Dizziness Stated Complaint: HEADACHE/DIZZY Time Seen by Provider: 10/18/18 17:46 Source: patient Mode of arrival: Ambulatory Limitations: No Limitations - History of Present Illness Initial Comments: pt is a38 y/o aaf with hx of htn nonadherent to meds presents for same for past 3 days there is however associated sinus pain and pressure left ear pain and pclear post nasal drip , and sore throat, hx of aom 1 month ago tx with amoxicillin, there is no n/v no no diaphoresis no back pain pt is a/o x 3 ambulatory to baseline per patient MD Complaint: dizziness Onset/Timin -: days(s) Timing: sudden onset Description: "room spinning", lightheadedness, off-balance History of Same: Yes History of Trauma: No Severity: moderate Improves With: nothing Worsens With: movement, position, exertion Associated Symptoms: cough, fever/chills - Related Data Previous Rx's Medication Instructions Recorded Last Taken Type amLODIPine [Norvasc] 2.5 mg PO DAILY 30 Days tab 06/21/13 Unknown Rx Ciprofloxacin HCl [Cipro] 500 mg PO Q12H #20 tab 03/02/14 Unknown Rx HYDROcodone/APAP 5-325 [[place] 1 each PO Q6HR PRN #12 tablet 03/02/14 Unknown Rx 5/325] Promethazine Dm (Nf) [Phenergan DM 5 ml PO Q6H PRN #120 ml 03/02/14 Unknown Rx 6.25-15 mg/5 ml] Lisinopril/Hydrochlorothiazide 1 each PO QDAY #30 tablet 02/01/15 Unknown Rx [Zestoretic 20-12.5 mg] Butalb/Acetaminophen/Caffeine 1 each PO Q6H PRN #20 capsule 10/24/15 Unknown Rx [Fioricet 50-300-40 mg CAP] Propranolol [Inderal] 10 mg PO BID #60 tablet 10/24/15 Unknown Rx Sulfamethoxazole/Trimethoprim 1 each PO BID #14 tablet 11/04/15 Unknown Rx [Bactrim DS TAB] ALBUTEROL Inhaler (OR & NICU) 2 puff IH QID PRN #1 inhalation 07/07/16 Unknown Rx [ProAir HFA Inhaler] Azithromycin [Zithromax Z-THANH] 250 mg PO DAILY #6 tab 07/07/16 Unknown Rx guaiFENesin/CODEINE [Robitussin AC] 5 ml PO Q6H PRN #100 ml 07/07/16 Unknown Rx Ibuprofen 800 mg PO Q6H PRN #20 tablet 09/25/17 Unknown Rx medroxyPROGESTERone ACETATE 10 mg PO DAILY #10 tablet 09/25/17 Unknown Rx [Provera] Amoxicillin/Potassium Clav 1 each PO BID #20 tablet 03/06/18 Unknown Rx [Augmentin 875-125 Tablet] Benzocaine/Menth/Cetylpyrd 8 each MM Q2H PRN #3 packet 03/06/18 Unknown Rx [Cepacol X Strength] Ibuprofen [Motrin 800 MG tab] 800 mg PO Q8HR PRN #30 tablet 03/06/18 Unknown Rx diphenhydrAMINE [Benadryl CAP] 25 mg PO Q8HR PRN #21 capsule 03/06/18 Unknown Rx Ferrous Sulfate [Iron] 325 mg PO DAILY #30 tablet 03/07/18 Unknown Rx HYDROcodone/APAP 5-325 [[place] 1 each PO Q6HR PRN #20 tablet 03/07/18 Unknown Rx 5/325] Mag Hydrox/Aluminum Hyd/Simeth 20 ml PO QID PRN #1 bottle 03/07/18 Unknown Rx [Maalox Advanced Suspension] Ondansetron [Zofran Odt] 4 mg PO Q8HR PRN #20 tab.rapdis 03/07/18 Unknown Rx Pantoprazole [Protonix] 40 mg PO QDAY #30 tablet 03/07/18 Unknown Rx Amoxicillin/Potassium Clav 1 each PO BID #20 tablet 10/18/18 Unknown Rx [Augmentin 875-125 Tablet] Ferrous Sulfate [Feosol 325 MG tab] 325 mg PO TID #90 tablet 10/18/18 Unknown Rx Ibuprofen 800 mg PO TID #30 tablet 10/18/18 Unknown Rx Sennosides [Senna] 8.6 mg PO DAILY #90 tablet 10/18/18 Unknown Rx diphenhydrAMINE [Benadryl CAP] 25 mg PO Q6HR PRN #30 capsule 10/18/18 Unknown Rx Allergies Allergy/AdvReac Type Severity Reaction Status Date / Time cefazolin sodium [From [facility]] Allergy Itching Verified 06/21/13 01:38 ED Review of Systems ROS: Stated complaint: HEADACHE/DIZZY Other details as noted in HPI Constitutional: fever. denies: chills Eyes: denies: eye pain, eye discharge, vision change ENT: ear pain, throat pain, congestion Respiratory: denies: cough, shortness of breath, wheezing Cardiovascular: denies: chest pain, palpitations Endocrine: no symptoms reported Gastrointestinal: denies: abdominal pain, nausea, vomiting, diarrhea Genitourinary: denies: urgency, dysuria, discharge Musculoskeletal: denies: back pain, joint swelling, arthralgia Skin: denies: rash, lesions Neurological: headache, vertigo. denies: weakness, numbness, paresthesias, confusion Psychiatric: denies: anxiety, depression Hematological/Lymphatic: denies: easy bleeding, easy bruising ED Past Medical Hx - Past Medical History Previous Medical History?: Yes Hx Hypertension: Yes (noncompliant with propranolol) Additional medical history: Vaginal delivery 2004,2002, 2000 and 1998 - Surgical History Past Surgical History?: Yes Additional Surgical History: Left hand and hip surgery,tubal ligation - Social History Smoking Status: Never Smoker Substance Use Type: None - Medications Home Medications: Home Medications Medication Instructions Recorded Confirmed Last Taken Type amLODIPine [Norvasc] 2.5 mg PO DAILY 30 Days tab 06/21/13 03/02/14 Unknown Rx Ciprofloxacin HCl [Cipro] 500 mg PO Q12H #20 tab 03/02/14 Unknown Rx HYDROcodone/APAP 5-325 [[place] 1 each PO Q6HR PRN #12 tablet 03/02/14 Unknown Rx 5/325] Promethazine Dm (Nf) [Phenergan DM 5 ml PO Q6H PRN #120 ml 03/02/14 Unknown Rx 6.25-15 mg/5 ml] Lisinopril/Hydrochlorothiazide 1 each PO QDAY #30 tablet 02/01/15 Unknown Rx [Zestoretic 20-12.5 mg] Butalb/Acetaminophen/Caffeine 1 each PO Q6H PRN #20 capsule 10/24/15 Unknown Rx [Fioricet 50-300-40 mg CAP] Propranolol [Inderal] 10 mg PO BID #60 tablet 10/24/15 Unknown Rx Sulfamethoxazole/Trimethoprim 1 each PO BID #14 tablet 11/04/15 Unknown Rx [Bactrim DS TAB] ALBUTEROL Inhaler (OR & NICU) 2 puff IH QID PRN #1 inhalation 07/07/16 Unknown Rx [ProAir HFA Inhaler] Azithromycin [Zithromax Z-THANH] 250 mg PO DAILY #6 tab 07/07/16 Unknown Rx guaiFENesin/CODEINE [Robitussin AC] 5 ml PO Q6H PRN #100 ml 07/07/16 Unknown Rx Ibuprofen 800 mg PO Q6H PRN #20 tablet 09/25/17 Unknown Rx medroxyPROGESTERone ACETATE 10 mg PO DAILY #10 tablet 09/25/17 Unknown Rx [Provera] Amoxicillin/Potassium Clav 1 each PO BID #20 tablet 03/06/18 Unknown Rx [Augmentin 875-125 Tablet] Benzocaine/Menth/Cetylpyrd 8 each MM Q2H PRN #3 packet 03/06/18 Unknown Rx [Cepacol X Strength] Ibuprofen [Motrin 800 MG tab] 800 mg PO Q8HR PRN #30 tablet 03/06/18 Unknown Rx diphenhydrAMINE [Benadryl CAP] 25 mg PO Q8HR PRN #21 capsule 03/06/18 Unknown Rx Ferrous Sulfate [Iron] 325 mg PO DAILY #30 tablet 03/07/18 Unknown Rx HYDROcodone/APAP 5-325 [[place] 1 each PO Q6HR PRN #20 tablet 03/07/18 Unknown Rx 5/325] Mag Hydrox/Aluminum Hyd/Simeth 20 ml PO QID PRN #1 bottle 03/07/18 Unknown Rx [Maalox Advanced Suspension] Ondansetron [Zofran Odt] 4 mg PO Q8HR PRN #20 tab.rapdis 03/07/18 Unknown Rx Pantoprazole [Protonix] 40 mg PO QDAY #30 tablet 03/07/18 Unknown Rx Amoxicillin/Potassium Clav 1 each PO BID #20 tablet 10/18/18 Unknown Rx [Augmentin 875-125 Tablet] Ferrous Sulfate [Feosol 325 MG tab] 325 mg PO TID #90 tablet 10/18/18 Unknown Rx Ibuprofen 800 mg PO TID #30 tablet 10/18/18 Unknown Rx Sennosides [Senna] 8.6 mg PO DAILY #90 tablet 10/18/18 Unknown Rx diphenhydrAMINE [Benadryl CAP] 25 mg PO Q6HR PRN #30 capsule 10/18/18 Unknown Rx ED Physical Exam - General Limitations: No Limitations General appearance: alert, in no apparent distress - Head Head exam: Present: atraumatic, normocephalic, normal inspection - Eye Eye exam: Present: normal appearance, PERRL, EOMI Pupils: Present: normal accommodation - ENT ENT exam: Present: mucous membranes moist - Expanded ENT Exam Expanded Ear exam: Present: normal external inspection, auricular trauma, other (bialt frontal and maxillary sinus pain no swelling no erythema ) TM/Canal exam: Erythema: Left TM, Canal Tenderness: Left TM Mouth exam: Present: trismus Teeth exam: Present: normal inspection Throat exam: Positive: tonsillar erythema. Negative: tonsillar exudate, R peritonsillar mass, L peritonsillar mass - Neck Neck exam: Present: normal inspection, full ROM, lymphadenopathy. Absent: tenderness, meningismus, thyromegaly - Expanded Neck Exam Expanded Neck exam: Absent: tenderness, midline deformity, anterior neck swelling, thyroid mass, carotid bruit, tracheal deviation - Respiratory Respiratory exam: Present: normal lung sounds bilaterally. Absent: respiratory distress, wheezes, stridor, chest wall tenderness - Cardiovascular Cardiovascular Exam: Present: regular rate, normal rhythm, normal heart sounds. Absent: systolic murmur, diastolic murmur, rubs, gallop - GI/Abdominal GI/Abdominal exam: Present: soft, normal bowel sounds. Absent: tenderness, mass, hernia - Rectal Rectal exam: Present: deferred - Extremities Exam Extremities exam: Present: normal inspection, full ROM, normal capillary refill. Absent: tenderness, pedal edema, joint swelling, calf tenderness - Back Exam Back exam: Present: normal inspection, full ROM. Absent: tenderness, CVA tenderness (R), CVA tenderness (L), muscle spasm, paraspinal tenderness, vertebral tenderness, rash noted - Neurological Exam Neurological exam: Present: alert, oriented X3, CN II-XII intact, normal gait, reflexes normal - Psychiatric Psychiatric exam: Present: normal affect, normal mood - Skin Skin exam: Present: warm, dry, intact, normal color. Absent: rash ED Course Vital Signs 10/18/18 17:47 Temperature 98.4 F Pulse Rate 91 H Respiratory 16 Rate Blood Pressure 161/105 ED Medical Decision Making - Lab Data Result diagrams: 10/18/18 19:09 Labs 10/18/18 19:09 WBC 3.2 L RBC 4.06 Hgb 7.0 L Hct 24.4 L MCV 60 L MCH 17 L MCHC 29 L RDW 22.0 H Plt Count 561 H Lymph % (Auto) 42.5 H [place] % (Auto) 9.0 H Eos % (Auto) 1.6 Baso % (Auto) 2.7 H Lymph # 1.4 [place] # 0.3 Eos # 0.1 Baso # 0.1 Seg Neutrophils % 44.2 Seg Neutrophils # 1.4 L - EKG Data EKG shows normal: sinus rhythm Rate: normal - EKG Data When compared to previous EKG there are: previous EKG unavailable Interpretation: normal EKG (Ekg interp by ed attending) - Radiology Data Radiology results: report reviewed, image reviewed cc: KYAW RESENDEZ NP Fluoro Time In Minutes: PROCEDURE: XR CHEST ROUTINE 2V TECHNIQUE: PA and lateral chest radiographs were obtained. HISTORY: dizziness COMPARISONS: None. FINDINGS: Heart: Normal. Mediastinum/Vessels: Normal. Lungs/Pleural space: Normal. Bony thorax: No acute osseous abnormality. Mild degree of dextroscoliosis is noted IMPRESSION: No acute abnormality. This document is electronically signed by Jyotsna Jonas MD., October 18 2018 08:49:19 PM ET Transcribed By: [facility] [place] Dictated By: JYOTSNA JONAS Electronically Authenticated By: JYOTSNA JONAS Signed Date/Time: 10/18/182050 DD/ 200 - Medical Decision Making this is anemia and AOM, plan tx aom, pt refuse blood transfusion will restart Ferrous sulfate as previously ordred pt will follow up with pcp, and or return to ed if symptoms worsen, dizziness is improved pt tolerating po intake no n/v fever or chills at this time, H/H 7.0/24.4 pt states this is a chronic problem but she will not take blood products. Critical care attestation.: If time is entered above; I have spent that time in minutes in the direct care of this critically ill patient, excluding procedure time. ED Disposition Clinical Impression: Anemia Qualifiers: Anemia type: unspecified type Qualified Code(s): D64.9 - Anemia, unspecified AOM (acute otitis media) Qualifiers: Otitis media type: serous Laterality: left Recurrence: recurrent Qualified C ode(s): H65.05 - Acute serous otitis media, recurrent, left ear Disposition: DC- TO HOME OR SELFCARE Is pt being admited?: No Does the pt Need Aspirin: No Condition: Stable Instructions: Anemia (ED), Iron Rich Diet (ED), Iron Deficiency Anemia (ED), Otitis Media (ED) Prescriptions: Amoxicillin/Potassium Clav [Augmentin 875-125 Tablet] 1 each PO BID #20 tablet diphenhydrAMINE [Benadryl CAP] 25 mg PO Q6HR PRN #30 capsule PRN Reason: sinus congestion Ferrous Sulfate [Feosol 325 MG tab] 325 mg PO TID #90 tablet Ibuprofen 800 mg PO TID #30 tablet Sennosides [Senna] 8.6 mg PO DAILY #90 tablet Referrals: TIANA STEPHENS MD [Primary Care Provider] - 3-5 Days Forms: Work/School Release Form(ED) Time of Disposition: 22:19
--- NOTE | 2018-10-18 20:51 | XRay Report ---
PROCEDURE: XR CHEST ROUTINE 2V TECHNIQUE: PA and lateral chest radiographs were obtained. HISTORY: dizziness COMPARISONS: None. FINDINGS: Heart: Normal. Mediastinum/Vessels: Normal. Lungs/Pleural space: Normal. Bony thorax: No acute osseous abnormality. Mild degree of dextroscoliosis is noted IMPRESSION: No acute abnormality. This document is electronically signed by Eamon Jonas MD., October 18 2018 08:49:19 PM ET
[2018-10-18 22:32] LABS: Alanine Aminotransferase 6 units/L (7-56); Albumin 3.9 g/dL (3.9-5); BUN/Creatinine Ratio 14; Blood Urea Nitrogen 7 mg/dL (7-17); Calcium 8.2 mg/dL (8.4-10.2); Hemolysis Index 1
== END 2018-10-18 22:26 | disposition home or self-care (01) ==
LOC: ED 15:16
DX: H66.92 Otitis media, unspecified, left ear (principal); D64.9 Anemia, unspecified; I10 Essential (primary) hypertension; Z98.51 Tubal ligation status; Z88.1 Allergy status to other antibiotic agents
CPT/HCPCS: 36415; 71046; 80053; 85025; 93005; 93010; 96372; 99284; J1100